=== PATIENT | female | born 1955 | race Caucasian/White ===

== ENCOUNTER 2018-12-15 21:53 | Emergency (ER) | payer BC, SELFPAY ==
[2018-12-15 21:59] VITALS: BP 120/68; PULSE 80; RESP 18; TEMP 37.4; O2SAT 93; BMI 23.3
--- NOTE | 2018-12-15 22:22 | DI.RAD.S_ITS ---
PROCEDURE: XR CHEST 2V INDICATIONS: shortness of breath TECHNIQUE: 2 views of the chest were acquired. COMPARISON: [facility], , CHEST 2 VIEW, 07/06/2017, 11:34. FINDINGS: Surgical changes and devices: Cholecystectomy clips.. Lungs and pleura: Small alveolar opacity involving the left posterior and lateral lower lobe. The small left pleural effusion. Mediastinum: Mediastinal contours are normal. Heart size is normal. Bones and chest wall: No suspicious bony abnormalities. Soft tissues appear unremarkable. IMPRESSION: Parenchymal changes consistent with left lower lobe pneumonia with small effusion. Dictated by: Adilia Chavis M.D. on 12/16/2018 at 8:16 Approved by: Adilia Chavis M.D. on 12/16/2018 at 8:20
[2018-12-15 23:58] LABS: Add Manual Diff / Slide Review NO; Basophils Absolute Auto 0 /uL (0-100); Basophils Percent Auto 0.5 % (0-2); Eosinophils Absolute Auto 100 /uL (0-450); Eosinophils Percent Auto 1.3 % (2-4); Hemoglobin 13.3 g/dL (12.0-16.0); Lymphocytes Absolute Auto 1300 /uL (1100-4500); Mean Corpuscular HGB Conc 33.3 % (30-36); Mean Corpuscular Hemoglobin 31.8 PG (26-34); Mean Corpuscular Volume 95.4 fL (80-100); Monocytes Absolute Auto 1500 /uL (0-900); Monocytes Percent Auto 14.7 % (3-14); Neutrophils Absolute Auto 7200 /uL (1500-7000); Neutrophils Percent Auto 70.5 % (50-75); Platelet Count 340 X10^3/uL (150-400); Red Blood Cell Count 4.19 X10^6/uL (4.0-5.2); Red Cell Distribution Width 13.6 % (11.6-14.8); White Blood Cell Count 10.2 X10^3/uL (4.5-11.0)
[2018-12-16 00:05] LABS: INR 1.1 (0.9-1.3); Prothrombin Time 13.2 SECONDS (10.1-12.7)
[2018-12-16 00:07] LABS: PTT Partial Thromboplastin Tim 27 SECONDS (26.4-36.2)
[2018-12-16 00:13] LABS: Alanine Aminotransferase 46 IU/L (9-52); Albumin 3.8 g/dL (3.5-5.0); Albumin Globulin Ratio 1.1 (1.0-2.8); Alkaline Phosphatase 90 U/L (38-126); Aspartate Aminotransferase 40 IU/L (14-36); BUN Creatinine Ratio 18.3 (6-22); Bilirubin Total 0.5 mg/dL (0.2-1.3); Blood Urea Nitrogen 11 mg/dL (7-17); Calcium 9.5 mg/dL (8.4-10.2); Carbon Dioxide 26 mmol/L (22-32); Chloride 104 mmol/L (98-107); Estimated Glomerular Filt Rate > 60.0 mL/min (>60); Globulin 3.5 g/dL (1.7-4.1); Glucose 100 mg/dL (80-110); HEMOLYSIS < 15 (0-50); Potassium 4.4 mmol/L (3.4-5.1); Sodium 139 mmol/L (137-145); Total Protein 7.3 g/dL (6.3-8.2)
[2018-12-16] MEDS: levoFLOXacin 250 MG TABLET 750 MG PO (00:48)
[2018-12-16 01:02] VITALS: BP 129/44; PULSE 68; RESP 18; O2SAT 97
--- NOTE | 2018-12-18 08:04 | ED_ITS ---
HPI - SOB/Dyspnea General Chief Complaint: Shortness of Breath/Dyspnea Stated Complaint: vomiting blood Time Seen by Provider: 12/15/18 22:42 Source: patient Mode of arrival: ambulatory Limitations: no limitations History of Present Illness 63-year-old female smoker with history of COPD presents with about 1 week of cough, productive of yellowish sputum and recently with some blood-tinged sputum. She denies any ashu hemoptysis nor nausea, vomiting or diarrhea. She has no fever or shaking chills. She denies exposure to ill persons. She has had no recent travel and is otherwise well and free of complaint MD Complaint: cough Onset (ago): day(s) Context: recent illness Severity: mild Consistency/Duration: constant Relieving factors: rest Exacerbating factors: nothing Known history of: COPD Associated symptoms: cough and sputum production Treatment prior to arrival: none Related Data Home oxygen amount: none Home Medications Medication Instructions Recorded Confirmed [DAYQUIL] #0 07/06/17 [NYQUIL] #0 07/06/17 Previous Rx's Medication Instructions Recorded azithromycin [Zithromax] 250 mg PO QDAY #4 tab 07/06/17 prednisone 20 mg PO SEE INSTRUCTIONS #12 tab 07/06/17 levofloxacin [Levaquin] 750 mg PO DAILY #7 tab 12/16/18 Allergies Allergy/AdvReac Type Severity Reaction Status Date / Time No Known Allergies Allergy Uncoded 11/21/17 13:08 Review of Systems Constitutional Denies chills, Denies fever(s), Denies lethargy and Denies weakness Eyes Denies change in vision, Denies eye discharge, Denies irritation and Denies loss of vision ENT Ears, Nose, Mouth, and Throat: Denies change in voice, Denies neck pain and Denies sore throat Cardiovascular Denies chest pain, Denies irregular heart rhythm, Denies lightheadedness, Denies palpitations, Denies dyspnea, Denies dyspnea on exertion and Denies orthopnea Respiratory Reports cough, Reports hemoptysis, Denies dyspnea, Denies dyspnea on exertion and Denies wheezing Gastrointestinal Gastrointestinal: Denies abdominal pain, Denies change in bowel habits, Denies diarrhea, Denies nausea and Denies vomiting Genitourinary Denies hematuria, Denies flank pain, Denies urinary incontinence and Denies urinary urgency Musculoskeletal Denies neck pain Integumentary/Breasts Denies pruritus, Denies erythema, Denies rash and Denies wounds Neurologic Denies confusion, Denies loss of vision and Denies weakness Psychiatric Denies anxiety, Denies confusion, Denies depression, Denies homicidal ideation and Denies suicidal ideation Endocrine Denies palpitations Hematologic/Lymphatic Denies easy bruising Allergic/Immunologic Denies wheezing PFSH Social History Smoking Status: Current every day smoker Social History Smoking Status: Current every day smoker Exam Narrative Exam Narrative: GENERAL: 63-year-old female appears older than stated age, thin, no obvious significant distress HEAD: Atraumatic. Normocephalic. No temporal or scalp tenderness. EYES: Pupils equal round and reactive. Extraocular motions intact. No scleral icterus. No injection or drainage. ENT: Nose without bleeding, purulent drainage or septal hematoma. Throat without erythema, tonsillar hypertrophy or exudate. Uvula midline. Airway patent. NECK: Trachea midline. No JVD or lymphadenopathy. Supple, nontender, no meningeal signs. CARDIOVASCULAR: Regular rate and rhythm without murmurs, gallops, or rubs. RESPIRATORY: Prolonged expiratory phase with decreased breath sounds bilaterally. Crackles in the left base GASTROINTESTINAL: Abdomen soft, non-tender, nondistended. No hepato- splenomegaly, or palpable masses. No guarding. EXTREMITIES: No clubbing, cyanosis, or edema. No joint tenderness, effusion, or edema noted. BACK: Nontender without deformity or crepitance. No flank tenderness. NEURO: AOx3. SKIN: No rash or erythema. Initial Vital Signs Initial Vital Signs: Vital Signs Temperature 99.3 F 12/15/18 21:59 Pulse Rate 80 12/15/18 21:59 Respiratory Rate 18 12/15/18 21:59 Blood Pressure 120/68 12/15/18 21:59 Pulse Oximetry 93 12/15/18 21:59 Scores CURB-65 Confusion: No BUN >19mg/dL (>7mmol/L): No Respiratory rate greater or equal to 30: No SBP <90mmHg or DBP less or equal to 60mmHg: No Age 65 or Older: No CURB-65 Total: 0 Score 0-1 Outpatient care, Score 2 Inpt vs. Obs, Score 3 or over Inpt admit with ICU for score of 4-5 Course Orders Ordered: Discontinued Medications Levofloxacin (Levaquin) 750 mg PO NOW ONE Stop: 12/16/18 00:45 Last Admin: 12/16/18 00:48 Dose: 750 mg Ondansetron HCl (Zofran) 4 mg IV NOW ONE Stop: 12/15/18 23:06 Pantoprazole Sodium (Protonix) 40 mg IV NOW ONE Stop: 12/15/18 23:06 Vital Signs - 8 hr 12/15/18 21:59 Temperature 99.3 F Pulse Rate 80 Respiratory Rate 18 Blood Pressure 120/68 Pulse Oximetry 93 MDM - SOB/Dyspnea Lab Data Result diagrams: 12/15/18 23:50 12/15/18 23:50 Lab Results 12/15/18 12/15/18 12/15/18 Range/Units 23:50 23:50 23:50 WBC 10.2 (4.5-11.0) X10^3/uL RBC 4.19 (4.0-5.2) X10^6/uL Hgb 13.3 (12.0-16.0) g/dL Hct 40.0 (36-46) % MCV 95.4 (80-100) fL MCH 31.8 (26-34) PG MCHC 33.3 (30-36) % RDW 13.6 (11.6-14.8) % Plt Count 340 (150-400) X10^3/uL Neut % (Auto) 70.5 (50-75) % Lymph % (Auto) 13.0 L (25-40) % [place] % (Auto) 14.7 H (3-14) % Eos % (Auto) 1.3 L (2-4) % Baso % (Auto) 0.5 (0-2) % Neut # (Auto) 7200 H (7980-7706) /uL Lymph # (Auto) 1300 (6377-5074) /uL [place] # (Auto) 1500 H (0-900) /uL Eos # (Auto) 100 (0-450) /uL Baso # (Auto) 0 (0-100) /uL PT 13.2 H (10.1-12.7) SECONDS INR 1.1 (0.9-1.3) APTT 27 (26.4-36.2) SECONDS Sodium 139 (137-145) mmol/L Potassium 4.4 (3.4-5.1) mmol/L Chloride 104 (98-107) mmol/L Carbon Dioxide 26 (22-32) mmol/L BUN 11 (7-17) mg/dL Creatinine 0.60 (0.52-1.04) mg/dL Estimated GFR > 60.0 (>60) mL/min BUN/Creatinine Ratio 18.3 (6-22) Glucose 100 (80-110) mg/dL Calcium 9.5 (8.4-10.2) mg/dL Total Bilirubin 0.5 (0.2-1.3) mg/dL AST 40 H (14-36) IU/L ALT 46 (9-52) IU/L Alkaline Phosphatase 90 (38-126) U/L Total Protein 7.3 (6.3-8.2) g/dL Albumin 3.8 (3.5-5.0) g/dL Globulin 3.5 (1.7-4.1) g/dL Albumin/Globulin Ratio 1.1 (1.0-2.8) Imaging Data Chest x-ray: Attestation: I personally reviewed and interpreted this imaging study as follows: My impression: Left lower lobe pneumonia Radiologist's impression: Procedure: XR chest 2V Ordering Provider: Noemí Coy PROCEDURE: XR CHEST 2V INDICATIONS: shortness of breath TECHNIQUE: 2 views of the chest were acquired. COMPARISON: [facility] with [facility], CHEST 2 VIEW, 07/06/2017, 11:34. FINDINGS: Surgical changes and devices: Cholecystectomy clips.. Lungs and pleura: Small alveolar opacity involving the left posterior and lateral lower lobe. The small left pleural effusion. Mediastinum: Mediastinal contours are normal. Heart size is normal. Bones and chest wall: No suspicious bony abnormalities. Soft tissues appear unremarkable. IMPRESSION: Parenchymal changes consistent with left lower lobe pneumonia with small effusion. Dictated by: Adilia Chavis M.D. on 12/16/2018 at 8:16 Approved by: Adilia Chavis M.D. on 12/16/2018 at 8:20 MDM Narrative Medical decision making narrative: A 63-year-old female smoker with COPD and a week's worth of productive cough which has become blood-tinged. She denies ashu hemoptysis. She has no chest pain and is not significantly short of breath. She feels much better after above-stated therapies. Chest x-ray shows left lower lobe pneumonia. Curb 65 bone score evaluated and would agree with outpatient treatment. Patient given return precautions. She has had her questions answered to her apparent satisfaction Discharge Plan Departure Patient Disposition: Home Clinical Impression: Pneumonia Qualifiers: Pneumonia type: due to unspecified organism Laterality: left Lung location: lower lobe of lung Qualified Code(s): J18.1 - Lobar pneumonia, unspecified organism Discharge Date/Time: 12/16/18 01:02 Interventions: ED Discharge Assessment Last Done: 12/16/18 01:02 Instructions: DI for Pneumonia -- Adult Activity Restrictions/Additional Instructions: *You have been diagnosed with [ acute pneumonia ] *What to do: *Take medications as directed *Follow up with your primary care provider in 2-3 days, call for an appointment. Let them know you were seen in the Emergency Department and that we ask that you be seen in follow up *Return to ER if you should have any new, worsening or concerning symptoms Prescriptions: New levofloxacin [Levaquin] 750 mg tablet 750 mg PO DAILY Qty: 7 RF: 0 No Action [NYQUIL] Qty: 0 RF: 0 [DAYQUIL] Qty: 0 RF: 0 azithromycin [Zithromax] 250 MG tablet 250 mg PO QDAY Qty: 4 RF: 0 prednisone 20 MG tablet 20 mg PO SEE INSTRUCTIONS Qty: 12 RF: 0
== END 2018-12-16 01:02 | disposition home or self-care (01) ==
PROVIDERS: Emergency Provider Emergency Medicine
DX: J18.1 Lobar pneumonia, unspecified organism (principal); R04.2 Hemoptysis; R11.10 Vomiting, unspecified
CPT/HCPCS: 36591; 71046; 80053; 85025; 85610; 85730; 99282; 99284

== ENCOUNTER 2020-11-06 14:54 | Emergency (ER) | payer OTHER, SELFPAY ==
[2020-11-06] VITALS (9 sets, daily range): BP systolic 106–147; BP diastolic 55–65; PULSE 64–84; RESP 12–40; TEMP 36.9; O2SAT 97–99; BMI 23.2
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
[2020-11-06] MEDS: CYCLOBENZAPRINE 10 MG PREPACK 1 BOTTLE MISC (18:09)
== END 2020-11-06 18:30 | disposition home or self-care (01) ==
PROVIDERS: Emergency Provider Emergency Medicine
DX: M62.838 Other muscle spasm (principal); V49.40XA Driver injured in collision with unspecified motor vehicles in traffic accident, initial encounter
CPT/HCPCS: 36415; 70450; 72125; 99284

== ENCOUNTER → 2020-11-23 15:52 | Outpatient (CLI) | payer OTHER, SELFPAY ==
[2020-11-23] MEDS: COVID-19 VACC #1, MRNA(MOD) 100 MCG/0.5 ML VIAL IM (16:08)
== END ==
PROVIDERS: Visit Provider Internal Medicine
DX: Z23 Encounter for immunization (principal)
CPT/HCPCS: 0011A; 91301

== ENCOUNTER → 2020-12-22 14:57 | Outpatient (CLI) | payer OTHER, SELFPAY ==
[2020-12-22] MEDS: COVID-19 VACC #2, MRNA(MOD) 100 MCG/0.5 ML VIAL IM (15:03)
== END ==
PROVIDERS: Visit Provider Internal Medicine
DX: Z23 Encounter for immunization (principal)
CPT/HCPCS: 0012A; 91301

== ENCOUNTER 2022-05-07 11:05 | Emergency (ER) | payer OTHER, SELFPAY ==
[2022-05-07] VITALS (12 sets, daily range): BP systolic 102–145; BP diastolic 53–70; PULSE 57–75; RESP 19; TEMP 36.4; O2SAT 82–99
--- NOTE | 2022-05-07 12:06 | DI.CT.S_ITS ---
PROCEDURE: CT CHEST ABD PEL W CON INDICATIONS: fall from ladder TECHNIQUE: After the administration of intravenous contrast, 5 mm thick sections acquired from the lung apices to the symphysis. 2.5 mm thick coronal and sagittal reformats were acquired. Additional 7 mm thick coronal maximum intensity projection (MIP) reformats acquired through the lungs. Optional 10-minute delayed imaging may be performed from the kidneys to the bladder. For radiation dose reduction, the following was used: automated exposure control, adjustment of mA and/or kV according to patient size. COMPARISON: [facility], CT, CT CERVICAL SPINE WO CON, 05/07/2022, 12:25. [facility], CT, CT HEAD/BRAIN WO CON, 05/07/2022, 12:24. FINDINGS: Image quality: Excellent. CHEST: Lungs: No pulmonary contusions or lacerations. There is mild dependent atelectasis. No pneumothorax or hemothorax. Central and peripheral airways appear patent and normal in caliber. Mediastinum: No mediastinal hematomas. Heart size is normal. No pericardial effusion. Thoracic aorta and pulmonary arteries demonstrate normal size and enhancement. No mediastinal or hilar adenopathy. Esophagus is normal in caliber. Fluid is seen within the esophagus. No hiatal hernia. Chest wall: There is a mildly displaced fracture seen involving the superior endplate the T12 level anteriorly, with 20% loss of height. No posterior displacement of fracture fragments can be seen. No involvement of the posterior elements can be seen. There is additional minimally displaced fracture also seen involving the superior endplate of T9, as on series 6, image 63 and on series 3 image 160. No significant surrounding hematomas can be seen. No rib fractures. No subcutaneous emphysema. No axillary or supraclavicular adenopathy. Thyroid gland demonstrates no significant abnormality. ABDOMEN: Solid organs: Liver is normal in size and enhancement, without lacerations. Gallbladder has been removed. Biliary system is non-dilated. Pancreas enhances normally, without transection. Spleen is normal in size and enhancement, without lacerations. Mild areas of thickening can be seen of the adrenal glands, yet without ashu focal nodules or hematomas. Both kidneys enhance normally, without hydronephrosis or lacerations. Peritoneum and bowel: No free fluid or air. Unenhanced bowel loops demonstrate normal wall thickness and caliber. Colonic diverticulosis is seen, without findings of active diverticulitis. Nodes and vessels: No retroperitoneal or mesenteric adenopathy. Aorta and inferior vena cava are normal in size and enhancement. Atherosclerotic calcification is noted. Miscellaneous: No ventral hernias. PELVIS: Genitourinary: Bladder wall thickness is normal. Miscellaneous: No inguinal hernias or adenopathy. Bones: Pelvic ring and hip joints appear intact. No vertebral compression fractures. Age-appropriate bony degenerative changes are seen. IMPRESSION: T12 fracture involving the anterior column, with 20% loss of height anteriorly. Faintly seen additional mild fracture also present at T9. Incidental note is made of: Apparent gastroesophageal reflux Mild dependent atelectasis Cholecystectomy Minimal areas of thickening of the adrenal glands, without focal nodules Diverticulosis, without active diverticulitis Dictated by: Eladio Alejandro M.D. on 05/07/2022 at 13:15 Approved by: Eladio Alejandro M.D. on 05/07/2022 at 13:21
--- NOTE | 2022-05-07 12:06 | DI.CT.S_ITS ---
PROCEDURE: CT CERVICAL SPINE WO CON INDICATIONS: fall from ladder TECHNIQUE: Noncontrast 3 mm thick sections acquired from the skull base to the T4 level. Sagittal and coronal reformats were then constructed. For radiation dose reduction, the following was used: automated exposure control, adjustment of mA and/or kV according to patient size. COMPARISON: [facility], CT, CT HEAD/BRAIN WO CON, 05/07/2022, 12:24. [facility], CT, CT CERVICAL SPINE WO CON, 11/06/2020, 15:29. FINDINGS: Image quality: This examination is somewhat limited by quantum mottle artifact. Bones: No fractures or dislocations. Visualized superior ribs are intact. S-shaped scoliotic curvature is seen. Focal degenerative change is seen involving the C1-C2 interface anteriorly. There is at least moderate disc space narrowing at C5-C6, with posteriorly directed endplate osteophytes. Zrml-ov-xbmnwxgh disc space narrowing is seen at C6-C7, with mild posteriorly directed endplate osteophytes. The disc height at C7-T1 is well-preserved, yet minimal anterolisthesis is seen at this level. Soft tissues: Prevertebral soft tissues are normal in thickness. No paravertebral hematomas. No apical pneumothoraces. IMPRESSION: Negative for acute fracture. Cervical spine degenerative changes are seen, which are worst inferiorly. Dictated by: Eladio Alejandro M.D. on 05/07/2022 at 12:40 Approved by: Eladio Alejandro M.D. on 05/07/2022 at 12:41
--- NOTE | 2022-05-07 12:06 | DI.CT.S_ITS ---
PROCEDURE: CT HEAD/BRAIN WO CON INDICATIONS: fall from ladder TECHNIQUE: Noncontrast 4.5 mm thick angled axial sections acquired from the foramen magnum to the vertex, with coronal and sagittal reformats. For radiation dose reduction, the following was used: automated exposure control, adjustment of mA and/or kV according to patient size. COMPARISON: [facility], CT, CT CERVICAL SPINE WO CON, 05/07/2022, 12:25. [facility], CT, CT HEAD/BRAIN WO CON, 11/06/2020, 15:29. FINDINGS: Image quality: Excellent. CSF spaces: Basal cisterns are patent. No extra-axial fluid collections. The ventricles are symmetric in size and shape. Brain: No intracranial bleeds or masses. There is cerebral volume loss for age, with resultant ventricular and sulcal prominence. There are periventricular and deep white matter chronic small vessel ischemic changes. There is intracranial internal carotid artery atherosclerosis. Skull and face: Calvarium and visualized facial bones appear intact, without suspicious lesions. Sinuses: Visualized sinuses and mastoids are clear. IMPRESSION: No acute intracranial hemorrhage is seen. No acute intracranial process is seen. Dictated by: Eladio Alejandro M.D. on 05/07/2022 at 12:39 Approved by: Eladio Alejandro M.D. on 05/07/2022 at 12:40
[2022-05-07 13:38] LABS: Add Manual Diff / Slide Review NO; Basophils Absolute Auto 0 /uL (0-100); Basophils Percent Auto 0.4 % (0-2); Eosinophils Absolute Auto 100 /uL (0-450); Eosinophils Percent Auto 0.8 % (2-4); Hematocrit 43.3 % (36-46); Hemoglobin 14.8 g/dL (12.0-16.0); Lymphocytes Absolute Auto 700 /uL (1100-4500); Lymphocytes Percent Auto 5.8 % (25-40); Mean Corpuscular HGB Conc 34.2 % (30-36); Mean Corpuscular Hemoglobin 32.7 PG (26-34); Mean Corpuscular Volume 95.7 fL (80-100); Monocytes Absolute Auto 800 /uL (0-900); Monocytes Percent Auto 6.5 % (3-14); Neutrophils Absolute Auto 10600 /uL (1500-7000); Neutrophils Percent Auto 86.5 % (50-75); Platelet Count 200 X10^3/uL (150-400); Red Blood Cell Count 4.52 X10^6/uL (4.0-5.2); Red Cell Distribution Width 13.6 % (11.6-14.8); White Blood Cell Count 12.3 X10^3/uL (4.5-11.0)
[2022-05-07] MEDS: HYDROMORPHONE 0.5 MG INJ IV (13:58)
[2022-05-07 14:40] LABS: Alanine Aminotransferase 23 IU/L (<35); Albumin 4.5 g/dL (3.5-5.0); Albumin Globulin Ratio 1.2 (1.0-2.8); Alkaline Phosphatase 89 U/L (38-126); Aspartate Aminotransferase 38 IU/L (14-36); BUN Creatinine Ratio 17.9 (6-22); Bilirubin Total 0.6 mg/dL (0.2-1.3); Blood Urea Nitrogen 14 mg/dL (7-17); Calcium 9.8 mg/dL (8.4-10.2); Carbon Dioxide 28 mmol/L (22-32); Chloride 99 mmol/L (98-107); Estimated Glomerular Filt Rate > 60 mL/min (>60); Globulin 3.7 g/dL (1.7-4.1); Glucose 100 mg/dL (80-110); HEMOLYSIS < 15 (0-50); Potassium 4.1 mmol/L (3.4-5.1); Sodium 137 mmol/L (137-145); Total Protein 8.2 g/dL (6.3-8.2)
--- NOTE | 2022-05-07 16:27 | ED_ITS ---
HPI - Fall General Chief Complaint: Fall Stated Complaint: FELL ON BACK Time Seen by Provider: 05/07/22 11:50 Source: patient Mode of arrival: Family Vehicle History of Present Illness HPI Narrative: Patient is a 66-year-old female. Not on anticoagulation who is here for evaluation of back pain. She states she was climbing on a 4 ft ladder at her house when she states the ladder lost his balance and she fell over. Landing directly on her back. She stated that she thinks she hit her head but she has no headache. She is no neck pain. She does have mid back pain. No upper extremity or lower extremity injuries. She was able to get up on her own. Has had pain in the back since then. No numbness and tingling in her arms or legs. Related Data Home Medications Medication Instructions Recorded Confirmed [DAYQUIL] ##0 07/06/17 [NYQUIL] ##0 07/06/17 Previous Rx's Medication Instructions Recorded azithromycin 250 mg tablet 250 mg PO QDAY #4 tabs 07/06/17 (Zithromax) prednisone 20 mg tablet 20 mg PO SEE INSTRUCTIONS #12 tabs 07/06/17 levofloxacin 750 mg tablet 750 mg PO DAILY #7 tabs 12/16/18 (Levaquin) cyclobenzaprine 10 mg tablet 10 mg PO TID PRN muscle spasm #10 11/06/20 tabs hydrocodone 5 mg-acetaminophen 325 1 tab PO Q4-6H PRN pain #14 tabs 05/07/22 mg tablet Allergies Allergy/AdvReac Type Severity Reaction Status Date / Time No Known Drug Allergies Allergy Verified 05/07/22 12:11 Review of Systems Review of Systems ROS Unobtainable: All systems reviewed & are unremarkable except as noted in HPI and below Patient History Medical History Hypothyroid Social History Smoking Status: Current every day smoker Smoking Status: Current every day smoker tobacco type: cigarettes alcohol intake frequency: 0-2 drinks per day Substance Use Type: does not use Exam Initial Vital Signs Initial Vital Signs: Vital Signs Temperature 97.6 F 05/07/22 11:22 Pulse Rate 75 05/07/22 11:22 Respiratory Rate 19 05/07/22 11:22 Blood Pressure 145/69 H 05/07/22 11:22 Pulse Oximetry 98 05/07/22 11:22 Oxygen Delivery Method 05/07/22 11:22 Const General: cooperative, comfortable and well developed HENMT Head: normal to inspection and normocephalic Face and sinus: normal facial exam Chest Chest: No crepitus and No tenderness Resp Effort & Inspection: normal respiratory effort Auscultation: clear to auscultation bilaterally Cardio Rate: regular rate Rhythm: regular rhythm GI Inspection: normal to inspection Palpation: soft, No firm and No tender Back/Spine/Pelvis Cervical Spine: No cervical spinal tenderness Thoracic/Lumbar Spine: No paraspinal tenderness, thoracic spinal tenderness (Lower thoracic) and lumbar spinal tenderness Skin General: no rashes or lesions noted Neuro General: patient alert, patient awake, patient oriented x3 and moves all extremities Cognition: normal cognition Speech: speech normal Motor: muscle tone normal throughout Sensory Exam: no sensory deficits noted Extrem General: normal to inspection and capillary refill normal Psych Appearance: grossly normal and well kempt Scores GCS Estrella coma scale eye opening: Spontaneous [place] coma scale verbal response: Orientated Est[place] coma scale motor response: Obey commands Estrella coma scale total score: 15 Course Orders Ordered: ED Orders 05/07/22 12:06 CT cervical spine wo con Stat CT chest abd pel w con Stat CT head/brain wo con Stat 05/07/22 12:20 Complete Blood Count AUTO DIFF Stat 05/07/22 14:05 Comprehensive Metabolic Panel Stat Type and Screen Stat 05/07/22 16:20 Urine Microscopic Stat Hydromorphone HCl (Hydromorphone 0.5 Mg Inj) 0.5 mg IV Q15MIN PRN PRN Reason: Pain, Last Admin: 05/07/22 13:58 Dose: 0.5 mg Documented By: PEGGY Vital Signs Vital signs: Vital Signs - 8 hr 05/07/22 11:22 05/07/22 14:00 05/07/22 14:30 Temperature 97.6 F Pulse Rate 75 69 Respiratory Rate 19 Blood Pressure 145/69 H 115/58 L Pulse Oximetry 98 99 Oxygen Delivery Method Room Air 05/07/22 14:30 05/07/22 15:00 05/07/22 15:00 Temperature Pulse Rate 65 71 Respiratory Rate Blood Pressure 119/56 L Pulse Oximetry 95 93 Oxygen Delivery Method 05/07/22 15:30 05/07/22 15:30 05/07/22 15:58 Temperature Pulse Rate 72 65 Respiratory Rate Blood Pressure 102/58 L Pulse Oximetry 94 95 Oxygen Delivery Method 05/07/22 15:58 05/07/22 16:03 05/07/22 16:04 Temperature Pulse Rate Respiratory Rate Blood Pressure 106/57 L 110/53 L Pulse Oximetry 82 L Oxygen Delivery Method 05/07/22 16:04 Temperature Pulse Rate 57 L Respiratory Rate Blood Pressure Pulse Oximetry 93 Oxygen Delivery Method MDM - Fall Lab Data Attestation: I reviewed the patient's lab results. Result diagrams: 05/07/22 12:20 05/07/22 14:05 Labs: Lab Results 05/07/22 05/07/22 05/07/22 Range/Units 12:20 14:05 14:05 WBC 12.3 H (4.5-11.0) X10^3/uL RBC 4.52 (4.0-5.2) X10^6/uL Hgb 14.8 (12.0-16.0) g/dL Hct 43.3 (36-46) % MCV 95.7 (80-100) fL MCH 32.7 (26-34) PG MCHC 34.2 (30-36) % RDW 13.6 (11.6-14.8) % Plt Count 200 (150-400) X10^3/uL Neut % (Auto) 86.5 H (50-75) % Lymph % (Auto) 5.8 L (25-40) % [place] % (Auto) 6.5 (3-14) % Eos % (Auto) 0.8 L (2-4) % Baso % (Auto) 0.4 (0-2) % Neut # (Auto) 12476 H (0865-0910) /uL Lymph # (Auto) 700 L (9812-4333) /uL [place] # (Auto) 800 (0-900) /uL Eos # (Auto) 100 (0-450) /uL Baso # (Auto) 0 (0-100) /uL Sodium 137 (137-145) mmol/L Potassium 4.1 (3.4-5.1) mmol/L Chloride 99 (98-107) mmol/L Carbon Dioxide 28 (22-32) mmol/L BUN 14 (7-17) mg/dL Creatinine 0.78 (0.52-1.04) mg/dL Estimated GFR > 60 (>60) mL/min BUN/Creatinine Ratio 17.9 (6-22) Glucose 100 (80-110) mg/dL Calcium 9.8 (8.4-10.2) mg/dL Total Bilirubin 0.6 (0.2-1.3) mg/dL AST 38 H (14-36) IU/L ALT 23 (<35) IU/L Alkaline Phosphatase 89 (38-126) U/L Total Protein 8.2 (6.3-8.2) g/dL Albumin 4.5 (3.5-5.0) g/dL Globulin 3.7 (1.7-4.1) g/dL Albumin/Globulin Ratio 1.2 (1.0-2.8) Blood Type O Positive Antibody Screen Negative Urine Dip Bedside Urine Glucose Negative Bedside Urine Bilirubin - Negative Bedside Urine Ketone - Negative Urine Specific [place] 1.015 Bedside Urine Occult Blood + Bedside Urine pH 6.0 Bedside Urine Protein - Negative Bedside Urine Urobilinogen - Negative Bedside Urine Nitrite + Positive Bedside Urine Leukocytes - Negative Esterase Imaging Data CT chest abd pelvis: Radiologist's Impression: [place] [address] CT Scan Report Signed Patient: Beatrice Cornelius MR#: [id number] : 1955 Acct:[id number] Age/Sex: 66 / F Date of Service: 05/07/22 Loc: ED Accession Number: [id number] ?? Procedure: CT chest abd pel w con Ordering Provider: Olivia Vargas MD PROCEDURE:? CT CHEST ABD PEL W CON ? INDICATIONS:? fall from ladder ? TECHNIQUE:? After the administration of intravenous contrast, 5 mm thick sections acquired from the lung apices to the symphysis.? 2.5 mm thick coronal and sagittal reformats were acquired. ?Additional 7 mm thick coronal maximum intensity projection (MIP) reformats ac quired through the lungs.? Optional 10-minute delayed imaging may be performed from the kidneys to the bladder.? For radiation dose reduction, the following was used:? automated exposure control, adjustment of mA and/or kV according to patient size.? ? COMPARISON:? [facility], CT, CT CERVICAL SPINE WO CON, 05/07/2022, 12:25.? [facility], CT, CT HEAD/BRAIN WO CON, 05/07/2022, 12:24. ? FINDINGS:? Image quality:? Excellent.? ? CHEST:? Lungs:? No pulmonary contusions or lacerations.? There is mild dependent atelectasis.? No pneumothorax or hemothorax.? Central and peripheral airways appear patent and normal in caliber.? ? Mediastinum:? No mediastinal hematomas.? Heart size is normal.? No pericardial effusion.? Thoracic aorta and pulmonary arteries demonstrate normal size and enhancement.? No mediastinal or hilar adenopathy.? Esophagus is normal in caliber.? Fluid is seen within the esophagus.? No hiatal hernia.? ? Chest wall:? There is a mildly displaced fracture seen involving the superior endplate the T12 level anteriorly, with 20% loss of height.? No posterior displacement of fracture fragments can be seen.? No involvement of the posterior elements can be seen.? There is additional minimally displaced fracture also seen involving the superior endplate of T9, as on series 6, image 63 and on series 3 image 160. No significant surrounding hematomas can be seen. ? No rib fractures.? No subcutaneous emphysema.? No axillary or supraclavicular adenopathy. ?Thyroid gland demonstrates no significant abnormality.? ? ? ABDOMEN:? Solid organs:? Liver is normal in size and enhancement, without lacerations.? Gallbladder has been removed.? Biliary system is non-dilated.? Pancreas enhances normally, without transection.? Spleen is normal in size and enhancement, without lacerations.? Mild areas of thickening can be seen of the adrenal glands, yet without ashu focal nodules or hematomas.? Both kidneys enhance normally, without hydronephrosis or lacerations.? ? Peritoneum and bowel:? No free fluid or air.? Unenhanced bowel loops demonstrate normal wall thickness and caliber.? Colonic diverticulosis is seen, without findings of active diverticulitis. ? Nodes and vessels:? No retroperitoneal or mesenteric adenopathy.? Aorta and inferior vena cava are normal in size and enhancement.? Atherosclerotic calcification is noted.? ? Miscellaneous:? No ventral hernias.? ? ? PELVIS:? Genitourinary:? Bladder wall thickness is normal.? ? Miscellaneous:? No inguinal hernias or adenopathy.? ? Bones:? Pelvic ring and hip joints appear intact.? No vertebral compression fractures.? Age-appropriate bony degenerative changes are seen.? ? ? IMPRESSION:? T12 fracture involving the anterior column, with 20% loss of height anteriorly. ? Faintly seen additional mild fracture also present at T9. ? Incidental note is made of: Apparent gastroesophageal reflux Mild dependent atelectasis Cholecystectomy Minimal areas of thickening of the adrenal glands, without focal nodules Diverticulosis, without active diverticulitis ? Dictated by: Eladio Alejandro M.D. on 05/07/2022 at 13:15 ? ? Approved by: Eladio Alejandro M.D. on 05/07/2022 at 13:21?? CT scan - head: Radiologist's Impression: [place] [address] CT Scan Report Signed Patient: Beatrice Cornelius MR#: [id number] : 1955 Acct:[id number] Age/Sex: 66 / F Date of Service: 05/07/22 Loc: ED Accession Number: [id number] ?? Procedure: CT head/brain wo con Ordering Provider: Olivia Vargas MD PROCEDURE:? CT HEAD/BRAIN WO CON ? INDICATIONS:? fall from ladder ? TECHNIQUE:? Noncontrast 4.5 mm thick angled axial sections acquired from the foramen magnum to the vertex, with coronal and sagittal reformats.? For radiation dose reduction, the following was used:? automated exposure control, adjustment of mA and/or kV according to patient size.? ? COMPARISON:? [facility], CT, CT CERVICAL SPINE WO CON, 05/07/2022, 12:25.? [facility], CT, CT HEAD/BRAIN WO CON, 11/06/2020, 15:29. ? FINDINGS:? Image quality:? Excellent.? ? CSF spaces:? Basal cisterns are patent.? No extra-axial fluid collections.? The ventricles are symmetric in size and shape.? ? Brain:? No intracranial bleeds or masses.? There is cerebral volume loss for age, with resultant ventricular and sulcal prominence.? There are periventricular and deep white matter chronic small vessel ischemic changes.? There is intracranial internal carotid artery atherosclerosis.? ? Skull and face:? Calvarium and visualized facial bones appear intact, without suspicious lesions.? ? Sinuses:? Visualized sinuses and mastoids are clear.? ? ? IMPRESSION:? No acute intracranial hemorrhage is seen.? ? No acute intracranial process is seen.? ? ? Dictated by: Eladio Alejandro M.D. on 05/07/2022 at 12:39 ? ? Approved by: Eladio Alejandro M.D. on 05/07/2022 at 12:40? CT - cervical spine: Radiologist's Impression: Beatrice Cornelius??66??F??1955 ? Allergy/Adv: No Known Drug Allergies (More??) Close Head CT (Signed) Eladio Alejandro - 05/07/22 Chest/Abdomen/Pelvis CT (Signed) Eladio Alejandro - 05/07/[address] (Signed) Eladio Alejandro - 05/07/[address] (Signed) Mounika Scott - 11/06/[address] (Signed) Mounika Scott - 11/06/20 Chest X-Ray (Signed) dAilia Chavis - 12/15/18 Launch?[place] [address] CT Scan Report Signed Patient: Beatrice Cornelius MR#: [id number] : 1955 Acct:[id number] Age/Sex: 66 / F Date of Service: 05/07/22 Loc: ED Accession Number: [id number] ?? Procedure: CT cervical spine wo con Ordering Provider: Olivia Vargas MD PROCEDURE:? CT CERVICAL SPINE WO CON ? INDICATIONS:? fall from ladder ? TECHNIQUE:? Noncontrast 3 mm thick sections acquired from the skull base to the T4 level.? Sagittal and coronal reformats were then constructed.? For radiation dose reduction, the following was used:? automated exposure control, adjustment of mA and/or kV according to patient size.? ? COMPARISON:? [facility], CT, CT HEAD/BRAIN WO CON, 05/07/2022, 12:24.? [facility], CT, CT CERVICAL SPINE WO CON, 11/06/2020, 15:29. ? FINDINGS:? Image quality:? This examination is somewhat limited by quantum mottle artifact.? ? Bones:? No fractures or dislocations.? Visualized superior ribs are intact.? S-shaped scoliotic curvature is seen. ? Focal degenerative change is seen involving the C1-C2 interface anteriorly.? There is at least moderate disc space narrowing at C5-C6, with posteriorly directed endplate osteophytes.? Seiu-xo-fsokkwcr disc space narrowing is seen at C6-C7, with mild posteriorly directed endplate osteophytes.? The disc height at C7-T1 is well- preserved, yet minimal anterolisthesis is seen at this level. ? Soft tissues:? Prevertebral soft tissues are normal in thickness.? No parav ertebral hematomas.? No apical pneumothoraces.? ? ? IMPRESSION:? Negative for acute fracture. ? Cervical spine degenerative changes are seen, which are worst inferiorly.? Dictated by: Eladio Alejandro M.D. on 05/07/2022 at 12:40 ? ? Approved by: Eladio Alejandro M.D. on 05/07/2022 at 12:41 MDM Narrative Medical decision making narrative: Patient is alert oriented x3. CT scan of the head and neck are unremarkable. C T scan of the chest abdomen pelvis show a anterior T12 fracture with 20% loss of height and potentially fracture T9. She is tender over the T12 vertebrae. She is no neurologic symptoms. Feels much better after pain control. Discussed the case with Dr. Herzog on-call for Orthopedics who agrees with discharge with pain control and follow-up in the office. I discussed this with the patient as well. She was given return precautions. She expressed understanding and agreement. Discharge Plan Departure Patient Disposition: Home Clinical Impression: Closed T12 fracture Instructions: Vertebral Compression Fracture Activity Restrictions/Additional Instructions: The CT scan does show a fracture of the 12th thoracic vertebrae. [facility] your request. I also recommend you contact the Orthopedic Department at the number provided below for a follow- up. Your only restricted on your activity by the discomfort that you are having but I would suspect that you are going to be in some discomfort for the next couple days. Also contact your primary doctor for follow-up. Return to the emergency department for any new or worsening symptoms. Prescriptions: New hydrocodone-acetaminophen 5-325 mg tablet 1 tab PO Q4-6H PRN (Reason: pain) Qty: 14 0RF No Action [NYQUIL] Qty: 0 [DAYQUIL] Qty: 0 azithromycin [Zithromax] 250 MG tablet 250 mg PO QDAY Qty: 4 0RF prednisone 20 MG tablet 20 mg PO SEE INSTRUCTIONS Qty: 12 0RF levofloxacin [Levaquin] 750 mg tablet 750 mg PO DAILY Qty: 7 0RF cyclobenzaprine 10 mg tablet 10 mg PO TID PRN (Reason: muscle spasm) Qty: 10 0RF Referrals: Chris Solorzano MD [Physician] - Denis Choi MD [Primary Care Provider] - Stand Alone Forms: Work Release Note
[2022-05-07 17:01] LABS: Bacteria Urine Many (>30); Culture Indicated Urine Specimen Cultured; RBC Urine None Seen (0-5/HPF); Squamous Epithelial Cell Urine 0-1 /HPF (0-5/HPF); WBC Urine None Seen (0-5/HPF)
== END 2022-05-07 17:18 | disposition home or self-care (01) ==
PROVIDERS: Emergency Medicine; Emergency Provider Emergency Medicine; PCP Family Medicine
DX: S22.089A Unspecified fracture of T11-T12 vertebra, initial encounter for closed fracture (principal); S09.90XA Unspecified injury of head, initial encounter; W11.XXXA Fall on and from ladder, initial encounter
CPT/HCPCS: 36415; 70450; 71260; 72125; 74177; 80053; 81003; 81015; 85025; 86850; 86900; 86901; 87077; 87086; 87186; 96374; 99284; J1170; Q9967

== ENCOUNTER → 2022-07-05 14:14 | Outpatient (CLI) | payer OTHER, SELFPAY ==
--- NOTE | 2022-07-05 14:16 | DI.MG.S_ITS ---
BILATERAL DIGITAL SCREENING MAMMOGRAM 3D/2D WITH CAD: 07/05/2022 CLINICAL: Routine screening. Comparison is made to exams dated: 03/17/2011 mammogram and 06/21/2005 mammogram - [facility]. Both breasts are almost entirely fatty (category a/<25% glandular tissue). Current study was also evaluated with a Computer Aided Detection (CAD) system. No significant masses, calcifications, or other findings are seen in either breast. There has been no significant interval change. IMPRESSION: NEGATIVE There is no mammographic evidence of malignancy. A 1 year screening mammogram is recommended. Based on the Tyrer Cuzick model (a risk assessment model) the patient's lifetime risk is 3.6% and her 10 year risk is 1.7%. According to the ACR, ACS, and NCCN guidelines, an annual breast MRI exam along with mammogram is recommended if the patient's lifetime risk is 20% or greater. This exam was interpreted at Station ID: [id number]. NOTE: For mammograms, a report in lay terms will be sent to the patient. Approximately 15% of breast malignancies will not be visualized mammographically. In the management of a palpable breast mass, a negative mammogram must not discourage biopsy of a clinically suspicious lesion. Electronically Signed By: Elizabeth sims/fariba:07/05/2022 15:40:21 letter sent: Normal Exam ACR BI-RADS Category 1: Negative [id number]
== END ==
PROVIDERS: PCP Family Medicine; Referring Provider Family Medicine; Visit Provider Family Medicine
DX: Z12.31 Encounter for screening mammogram for malignant neoplasm of breast (principal); Z13.820 Encounter for screening for osteoporosis; Z78.0 Asymptomatic menopausal state; S22.002 Unstable burst fracture of unspecified thoracic vertebra
CPT/HCPCS: 77063; 77067; 77080

== ENCOUNTER → 2025-05-25 14:28 | Outpatient (CLI) | payer OTHER, SELFPAY ==
--- NOTE | 2025-05-25 14:32 | DI.MG.S_ITS ---
MM screening mammo BI: 05/25/2025. BI-RADS: 1 CLINICAL: 70-year old female for bilateral screening mammogram. Tyrer-Cuzick lifetime risk of 3.8%. No personal or first-degree family history of breast cancer. PRIOR EXAMS 07/05/2022. MAMMOGRAPHY TECHNIQUE: 2D and 3D (tomosynthesis) digital mammographic views obtained, with additional images as needed for full coverage. Current study was also evaluated with a Computer Aided Detection (CAD) system. DENSITY B. There are scattered areas of fibroglandular density. MAMMOGRAPHY FINDINGS Bilateral: No suspicious mass, asymmetry, microcalcification, or other abnormality seen. IMPRESSION: * No evidence of malignancy. RECOMMENDATIONS Bilateral * Annual screening mammography. OVERALL ASSESSMENT CATEGORY BI-RADS-1: Negative. The [employer] recommends annual screening mammography beginning at age 40 for women with average risk of breast cancer. ELECTRONICALLY SIGNED: Pricila Alexander M.D. on 05/25/2025 at 05:13:52 PM PT Interpreting Station ID: [id number]
== END ==
LOC: MAMMO 14:31
PROVIDERS: PCP Family Medicine; Referring Provider Family Medicine; Visit Provider Family Medicine
DX: Z12.31 Encounter for screening mammogram for malignant neoplasm of breast (principal)
CPT/HCPCS: 77063; 77067